=== PATIENT | female | born 1970 | race Caucasian/White ===

== ENCOUNTER → 2020-10-16 | Outpatient (CLI) | payer BC ==
[~2020-10-16] MED LIST: CARAFATE1 GM/10 ML PO; PROTONIX40 MG PO
== END ==
LOC: US 09:09
DX: K76.0 Fatty (change of) liver, not elsewhere classified (principal)
CPT/HCPCS: 76700

== ENCOUNTER 2020-11-04 09:09 | Emergency (ER) | payer OTHER | END 2020-11-04 10:45 | disposition home or self-care (01) | LOC: ER1 09:09 | DX: S60.011A Contusion of right thumb without damage to nail, initial encounter (principal); Z88.0 Allergy status to penicillin; Z88.2 Allergy status to sulfonamides; W23.0XXA Caught, crushed, jammed, or pinched between moving objects, initial encounter; Y92.89 Other specified places as the place of occurrence of the external cause; Y99.0 Civilian activity done for income or pay | CPT/HCPCS: 73130; 90471; 90715; 99283 ==

== ENCOUNTER → 2021-04-10 | Outpatient (CLI) | payer BC | LOC: EXRD 13:18 | DX: R55 Syncope and collapse (principal) | CPT/HCPCS: 93880 ==

== ENCOUNTER 2021-06-30 13:38 | Emergency (ER) | payer BC ==
[2021-06-30 15:44] LABS: HEMOGLOBIN 13.5 gm/dl (12.3-15.3); RED BLOOD COUNT 4.45 M/UL (4.00-5.10); WHITE BLOOD COUNT 4.5 K/UL (4.5-11.0)
[2021-06-30 16:09] LABS: BUN/CREATININE RATIO 27 (0-10)
== END 2021-06-30 16:45 | disposition home or self-care (01) ==
LOC: ER1 13:38
PROVIDERS: Emergency Medicine
DX: U07.1 COVID-19 (principal); R07.89 Other chest pain; Z90.49 Acquired absence of other specified parts of digestive tract; Z90.710 Acquired absence of both cervix and uterus
CPT/HCPCS: 71045; 80053; 82550; 82553; 83874; 84484; 85025; 85379; 93005; 96374; 99285; J1100

== ENCOUNTER → 2021-07-27 | Outpatient (CLI) | payer BC ==
[2021-07-27 10:25] LABS: HEMOGLOBIN 14.1 gm/dl (12.3-15.3); RED BLOOD COUNT 4.71 M/UL (4.00-5.10); WHITE BLOOD COUNT 5.3 K/UL (4.5-11.0)
[2021-07-27 10:57] LABS: BUN/CREATININE RATIO 16 (0-10)
== END ==
LOC: LAB 09:28
PROVIDERS: Internal Medicine
DX: Z13.220 Encounter for screening for lipoid disorders (principal); D64.9 Anemia, unspecified; R73.01 Impaired fasting glucose; Z79.899 Other long term (current) drug therapy
CPT/HCPCS: 80053; 80061; 82607; 82728; 82746; 83036; 83540; 83550; 84439; 84443; 85025

== ENCOUNTER → 2021-10-29 | Outpatient (CLI) | payer BC | LOC: KOH-I 08:46 | DX: K76.0 Fatty (change of) liver, not elsewhere classified (principal) | CPT/HCPCS: 76700 ==

== ENCOUNTER → 2021-11-03 | Outpatient (CLI) | payer BC | LOC: HEART 5 14:41 | DX: R00.2 Palpitations (principal) ==

== ENCOUNTER → 2022-01-23 | Outpatient (CLI) | payer BC ==
[2022-01-23 11:12] LABS: HEMOGLOBIN 13.4 gm/dl (12.3-15.3); RED BLOOD COUNT 4.32 M/UL (4.00-5.10); WHITE BLOOD COUNT 4.8 K/UL (4.5-11.0)
[2022-01-23 11:37] LABS: BUN/CREATININE RATIO 16 (0-10)
[2022-01-24 06:40] LABS: CREATININE, URINE 43.8 mg/dL (Not Estab.); MICROALB/CREAT RATIO <7 (0-29)
== END ==
LOC: LAB 10:40
PROVIDERS: Internal Medicine
DX: R53.83 Other fatigue (principal); R73.01 Impaired fasting glucose; D51.8 Other vitamin B12 deficiency anemias; E55.9 Vitamin D deficiency, unspecified; Z79.899 Other long term (current) drug therapy; Z51.81 Encounter for therapeutic drug level monitoring
CPT/HCPCS: 36415; 80053; 80061; 82043; 82570; 82607; 82728; 82746; 83036; 83540; 83550; 84439; 84443; 85025